=== PATIENT | female | born 2000 | race Caucasian/White ===

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

== ENCOUNTER 2022-03-07 21:57 | Emergency (ER) | payer OTHER ==
[2022-03-07 23:52] LABS: BASOPHIL 0.6 % (0-2); EOSINOPHIL 0.3 % (0-5); HCT 40.9 % (37.0-47.0); HGB 14.1 g/dl (12.5-16.0); LYMPHOCYTE 16.3 % (15-48); MCH 29.8 pg (25.0-31.0); MCHC 34.5 g/dL (32.0-36.0); MCV 86.5 fL (78.0-100.0); MONOCYTE 5.3 % (0-12); MPV 11.4 fL (6.0-9.5); NEUTROPHIL 77.1 % (41-80); NRBC 0; PLT 283 K/uL (150-400); RBC 4.73 M/uL (4.20-5.40); RDW 11.9 % (11.5-14.0); WBC 14.7 K/uL (4.0-10.5)
[2022-03-07 23:54] LABS: BILIRUBIN NEGATIVE (NEGATIVE); BLOOD NEGATIVE Ery/uL (NEGATIVE); CLARITY CLEAR (CLEAR); COLOR YELLOW (YELLOW); GLUCOSE (U) NORMAL (NORMAL); LEUKOCYTES NEGATIVE Leu/uL (NEGATIVE); NITRITE NEGATIVE (NEGATIVE); PROTEIN NEGATIVE (NEGATIVE); SPECIFIC GRAVITY 1.015 (1.001-1.030); UROBILINOGEN 0.2 mg/dL (0.2-1.0); pH 6.5 (5.0-9.0)
[2022-03-08 00:02] LABS: AMPHETAMINES NEGATIVE (NEGATIVE); BARBITURATES NEGATIVE (NEGATIVE); ECSTASY (MDMA) NEGATIVE (NEGATIVE); MARIJUANA (THC) NEGATIVE (NEGATIVE); METHADONE NEGATIVE (NEGATIVE); OPIATES NEGATIVE (NEGATIVE); OXYCODONE NEGATIVE (NEGATIVE)
[2022-03-08 00:45] LABS: CORONAVIRUS 2019 SARS-COV-2 NEGATIVE (NEGATIVE); INFLUENZA A NAA NEGATIVE (NEGATIVE)
[2022-03-08 00:47] LABS: ACETAMINOPHEN (TYLENOL) < 2.0 ug/mL (10.0-30.0); ALBUMIN 4.2 g/dL (3.4-5.0); ALKALINE PHOSHATASE 98 U/L (46-116); ALT 17 U/L (14-59); AST 14 U/L (15-37); BILIRUBIN - TOTAL 0.4 mg/dL (0.2-1.0); BUN 9 mg/dL (7-18); BUN/CREAT RATIO (CALC) 13.2 RATIO; CHLORIDE 104 mmol/L (98-107); CO2 (BICARBONATE) 24 mmol/L (21-32); CREATININE 0.68 mg/dL (0.51-0.95); GLOBULIN (CALCULATION) 3.3 g/dL; GLUCOSE 113 mg/dL (74-106); POTASSIUM 3.6 mmol/L (3.5-5.1); TOTAL PROTEIN 7.5 g/dL (6.4-8.2)
== END 2022-03-08 03:39 ==
LOC: FER 21:57
PROVIDERS: Emergency Medicine
DX: F32.A Depression, unspecified (principal); Z20.822 Contact with and (suspected) exposure to COVID-19
CPT/HCPCS: 36415; 80053; 80305; 81003; 85025; 99285; G0480; U0002

== ENCOUNTER 2022-04-12 18:50 | Emergency (ER) | payer OTHER ==
[2022-04-12 19:42] LABS: BILIRUBIN NEGATIVE (NEGATIVE); BLOOD 3+ Ery/uL (NEGATIVE); CLARITY CLEAR (CLEAR); COLOR YELLOW (YELLOW); GLUCOSE (U) NORMAL (NORMAL); LEUKOCYTES 1+ Leu/uL (NEGATIVE); NITRITE NEGATIVE (NEGATIVE); PROTEIN NEGATIVE (NEGATIVE); SPECIFIC GRAVITY 1.015 (1.001-1.030); UROBILINOGEN 0.2 mg/dL (0.2-1.0)
[2022-04-12 19:50] LABS: BASOPHIL 0.8 % (0-2); EOSINOPHIL 2.3 % (0-5); HCT 38.6 % (37.0-47.0); HGB 13.5 g/dl (12.5-16.0); LYMPHOCYTE 31.1 % (15-48); MCH 30.5 pg (25.0-31.0); MCV 87.3 fL (78.0-100.0); MONOCYTE 6.1 % (0-12); NEUTROPHIL 59.4 % (41-80); NRBC 0; PLT 270 K/uL (150-400); RBC 4.42 M/uL (4.20-5.40); RDW 12.1 % (11.5-14.0); WBC 8.8 K/uL (4.0-10.5)
[2022-04-12 19:53] LABS: BACTERIA 2+
[2022-04-12 20:11] LABS: BILIRUBIN - TOTAL 0.3 mg/dL (0.2-1.0); BUN/CREAT RATIO (CALC) 8.8 RATIO; CREATININE 0.8 mg/dL (0.51-0.95); GLOBULIN (CALCULATION) 3.4 g/dL; TOTAL PROTEIN 7.4 g/dL (6.4-8.2)
[2022-04-12 20:25] LABS: CORONAVIRUS 2019 SARS-COV-2 NEGATIVE (NEGATIVE); INFLUENZA A NAA NEGATIVE (NEGATIVE)
[2022-04-12] MEDS ORDERED: MACROBID100 MG PO (21:08)
== END 2022-04-12 21:27 | disposition home or self-care (01) ==
LOC: FER 18:50
PROVIDERS: Physician Assistant
DX: N39.0 Urinary tract infection, site not specified (principal); Z20.822 Contact with and (suspected) exposure to COVID-19; Z28.310 Unvaccinated for COVID-19
CPT/HCPCS: 36415; 80053; 81001; 84145; 85025; 87088; J1885; J2765; J2930; J7030; U0002